=== PATIENT | female | born 1960 | race Caucasian/White ===

== ENCOUNTER 2017-11-23 05:34 | Observation (INO) | payer BC, OTHER ==
[2017-11-23 06:58] LABS: INR 0.96; PROTIME 12.9 Sec (11.9-14.9)
[2017-11-23 06:59] LABS: PARTIAL THROMBOPLASTIN TIME 31.5 Sec (25.0-35.0)
[2017-11-23] MEDS ORDERED: CEFAZOLIN 1 GM INJ ×2 (07:00→10:59)
[2017-11-23] MEDS ORDERED: ROPIVACAINE 0.5 % 30 ML VIAL (07:20)
[2017-11-23] MEDS ORDERED: MIDAZOLAM 1 MG/ML 2 ML INJ (07:20)
[2017-11-23] MEDS ORDERED: SUCCINYLCHOLINE CHLORIDE 100 MG/5 ML SYG IV (08:09)
[2017-11-23] MEDS ORDERED: FAMOTIDINE 20 MG INJ (08:09)
[2017-11-23] MEDS ORDERED: DEXAMETHASONE 4 MG/ML 1 ML INJ (08:09)
[2017-11-23] MEDS ORDERED: PROPOFOL 20 ML (08:09)
[2017-11-23] MEDS ORDERED: EPHEDrine 50 MG INJ (08:09)
[2017-11-23] MEDS ORDERED: ROCURONIUM 50 MG INJ ×2 (08:09→10:59)
[2017-11-23] MEDS ORDERED: ONDANSETRON 4 MG INJ (08:09)
[2017-11-23] MEDS ORDERED: LIDOCAINE 2% (SDV) 5 ML INJ (08:09)
[2017-11-23] MEDS: METHYLENE BLUE 1% 10 ML INJ (08:32)
[2017-11-23] MEDS: POLYMYXIN/BACITRACIN 1L IRRIG (08:32)
[2017-11-23] MEDS ORDERED: HYDROmorphONE 2 MG/ML SYG (09:18)
[2017-11-23] MEDS ORDERED: SUGAMMADEX SODIUM 200 MG/2 ML VIAL IV (11:16)
[2017-11-23] MEDS: POVIDONE IODINE 10% 28.4 GM OINT (12:23)
[2017-11-23] MEDS: ROPIVACAINE 0.5 % 30 ML VIAL (12:24)
[2017-11-23] MEDS ORDERED: PROCHLORPERAZINE 10 MG INJ IV (12:30)
[2017-11-23] MEDS ORDERED: OXYCODONE/ACETAMINOPHEN (5/325) TAB PO (12:30)
[2017-11-23] MEDS ORDERED: MEPERIDINE 25 MG INJ IV (12:30)
[2017-11-23] MEDS ORDERED: HYDROmorphONE 1 MG/5 ML IV SYRINGE IV (12:30)
[2017-11-23] MEDS ORDERED: FENTAnyl 50 MCG/ML VIAL IV ×2 (12:30)
[2017-11-23] MEDS ORDERED: DIPHENHYDRAMINE 50 MG INJ IV (12:30)
[2017-11-23] MEDS: ONDANSETRON 4 MG INJ IV ×2 (12:32→19:48)
[2017-11-23] MEDS: HYDROmorphONE 1 MG/5 ML IV SYRINGE IV ×2 (12:33→12:48)
[2017-11-23] MEDS: FENTAnyl 50 MCG/ML VIAL IV ×2 (12:58→13:06)
[2017-11-23] MEDS ORDERED: CEFAZOLIN 1 GM INJ IV (13:00)
[2017-11-23] MEDS ORDERED: morphine 10 MG INJ IV (13:00)
[2017-11-23] MEDS ORDERED: DIPHENHYDRAMINE 25 MG CAP PO (13:00)
[2017-11-23] MEDS ORDERED: BISACODYL 10 MG SUPP PR (13:00)
[2017-11-23] MEDS: SOD CHLORIDE 0.9% 1,000 ML IV ×2 (13:07→14:56)
[2017-11-23] MEDS: HYDROmorphONE 0.2 MG/ML PCA IV ×2 (13:20→23:17)
[2017-11-23] MEDS: CEFAZOLIN 1 GM/50 ML (PMX) 50 ML IVPB ×2 (14:55→23:12)
[2017-11-23] MEDS: SENNA/DOCUSATE NA (8.6MG/50MG) TAB PO (20:57)
[2017-11-24] MEDS: SOD CHLORIDE 0.9% 1,000 ML IV (00:32)
[2017-11-24] MEDS: CEFAZOLIN 1 GM/50 ML (PMX) 50 ML IVPB ×3 (06:32→22:37)
[2017-11-24] MEDS: ONDANSETRON 4 MG INJ IV (08:56)
[2017-11-24] MEDS: SENNA/DOCUSATE NA (8.6MG/50MG) TAB PO ×2 (08:56→22:37)
[2017-11-24 10:13] LABS: HAAIG REFLEX REFLEX FILED
[2017-11-24] MEDS: OXYCODONE/ACETAMINOPHEN (5/325) TAB PO ×3 (11:21→22:47)
[2017-11-24] MEDS ORDERED: HYDROmorphONE 0.2 MG/ML PCA IV (13:18)
[2017-11-24 13:21] LABS: HEPATITIS B SURFACE ANTIGEN NEGATIVE (NEGATIVE)
[2017-11-24 13:38] LABS: HEPATITIS B CORE ANTIBODY NEGATIVE (NEGATIVE)
[2017-11-24 13:39] LABS: HEPATITIS C VIRAL ANTIBODY NEGATIVE (NEGATIVE); HIV 1&2 ANTIBODY NEGATIVE (NEGATIVE)
[2017-11-24] MEDS: RIVAROXABAN 10 MG TABLET PO (17:39)
[2017-11-25] MEDS: OXYCODONE/ACETAMINOPHEN (5/325) TAB PO ×3 (05:35→15:41)
[2017-11-25] MEDS: CEFAZOLIN 1 GM/50 ML (PMX) 50 ML IVPB (05:35)
[2017-11-25] MEDS: SENNA/DOCUSATE NA (8.6MG/50MG) TAB PO (08:30)
[2017-11-25] MEDS: RIVAROXABAN 10 MG TABLET PO (15:40)
[2017-11-25] MEDS ORDERED: MAGNESIUM HYDROXIDE 30ML CUP PO (21:00)
== END 2017-11-25 16:10 | disposition home or self-care (01) ==
LOC: SDS 05:34 → REC 12:45 → MS1 13:56
DX: S86.811A Strain of other muscle(s) and tendon(s) at lower leg level, right leg, initial encounter (principal); S93.611A Sprain of tarsal ligament of right foot, initial encounter; M21.41 Flat foot [pes planus] (acquired), right foot; J45.909 Unspecified asthma, uncomplicated; E03.9 Hypothyroidism, unspecified; X58.XXXA Exposure to other specified factors, initial encounter
CPT/HCPCS: 27691; 73650; 85610; 85730; 86703; 86704; 86709; 86803; 87340; 97116; 97161